=== PATIENT | male | born 1955 | race Asian ===

== ENCOUNTER 2021-10-25 07:51 | Emergency (ER) | payer OTHER ==
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
[2021-10-25 09:14] VITALS: BP 162/89; TEMP 98.2
[2021-10-25 09:15] VITALS: O2SAT 99
== END 2021-10-25 09:07 | disposition home or self-care (01) ==
LOC: ER 07:51
DX: S29.012A Strain of muscle and tendon of back wall of thorax, initial encounter (principal); V49.40XA Driver injured in collision with unspecified motor vehicles in traffic accident, initial encounter
CPT/HCPCS: 71045; 72070; 99283